=== PATIENT | female | born 1985 | race Caucasian/White ===

== ENCOUNTER 2018-02-02 23:27 | Emergency (ER) | payer SELFPAY ==
[2018-02-02 23:30] VITALS: BP 116/77; PULSE 91; RESP 18; TEMP 36.5; O2SAT 100; BMI 32.7
--- NOTE | 2018-02-02 23:39 | RAD_ITS ---
STUDY: X-RAY - LEFT KNEE REASON FOR EXAM: Female, 32 years old. Left knee pain medially, posterior to the left patella, no recent injury. TECHNIQUE: 4 view(s) of the knee. COMPARISON: 03/07/2013 FINDINGS: Normal visualized distal femur. Tiny spurring along the femoral notch laterally is new. Normal visualized proximal tibia and fibula. Normal proximal tibiofibular articulation. Normal medial femorotibial compartment. Normal lateral femorotibial compartment. Normal patellofemoral articulation. There is no demonstrated joint effusion. The soft tissue structures are unremarkable. RAD/Knee 4 or More Views IMPRESSION: Tiny spur involving the femoral notch new since previous examination. Otherwise no significant degenerative changes detected. Electronically Signed: Fiona Barragan MD at 0:28 EDT , Service support ,
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
[2018-02-02] MEDS: HYDROcodone Bitartrate/Apap 5/325 Tablet PO (23:57)
--- NOTE | 2018-02-03 00:32 | ED.DEP ---
ED Disposition - Plan for ED Patient: Chief Complaint: Lower Extremity Injury Instructions: ED Sprain Knee Prescriptions: Naproxen [Naprosyn] 500 mg PO BID PRN #20 tablet Referrals: Elijah Umana MD [Primary Care Provider] -
[2018-02-03 00:39] VITALS: BP 107/80; PULSE 79; RESP 18; O2SAT 99
== END 2018-02-03 00:56 | disposition home or self-care (01) ==
PROVIDERS: Emergency Provider Emergency Medicine; Family Provider Family Medicine; PCP Family Medicine
DX: M25.562 Pain in left knee (principal); Z72.0 Tobacco use; Z79.899 Other long term (current) drug therapy
CPT/HCPCS: 73564; 99283

== ENCOUNTER 2018-03-06 19:25 | Emergency (ER) | payer MEDICAID, SELFPAY ==
[2018-03-06 19:26] VITALS: BP 107/77; PULSE 80; RESP 16; TEMP 36.7; O2SAT 97; BMI 33.1
--- NOTE | 2018-03-06 20:01 | CT_ITS ---
STUDY: CT ABDOMEN AND PELVIS WITH CONTRAST REASON FOR EXAM: Female, 32 years old. Abdominal pain. RADIATION DOSAGE (If Supplied By Facility): CTDIvol = ( 16.10 ) mGy, DLP = ( 1116.80 ) mGycm TECHNIQUE: Transaxial images were obtained from the dome of the diaphragm to the symphysis pubis without oral contrast. 100ML ml of Isovue 300 contrast was administered. Sagittal and coronal images were reconstructed. Individualized dose optimization techniques were used for this CT. COMPARISON: None. FINDINGS: Posterior dependent atelectatic changes are present. The visualized portions of the heart are within normal limits. Normal liver. Normal gallbladder and extrahepatic biliary system. Normal spleen. Normal pancreas. Normal bilateral adrenal glands. Normal right kidney. Normal left kidney. Normal visualized stomach. There is mild dilatation of the small bowel within the left quadrant suggestive of ileus in the appropriate clinical setting. Normal colon. The appendix is visualized and appears normal. Normal abdominal aorta. Normal inferior vena cava. Normal retroperitoneum. Normal urinary bladder. Normal visualized uterus. Bilateral Essure devices are in place. Hypoechoic region within the left adnexa is present consistent with ovarian cyst measuring 1.6 cm. Normal abdominal wall. Normal osseous structures. CT/Abdomen/Pelvis WITH Contrast IMPRESSION: Left quadrant mild small bowel dilatation suggestive of ileus in the appropriate clinical setting with underlying enteritis not excluded. No evidence of definitive small bowel obstruction. Left ovarian cyst as above. Electronically Signed: Kevan Wade DO at 22:48 EST , Service support ,
[2018-03-06 20:14] LABS: Red Blood Cells-Urine 0 SEEN /hpf (0-5)
[2018-03-06 20:18] LABS: Color, Urine Yellow (Yellow); Glucose, Dipstick 100 mg/dl (Normal); Ketone-Dipstick 5 mg/dl (Negative); Leukocyte Esterase-Dipstick 500 /ul (Negative); Nitrite-Dipstick Negative (Negative); Occult Blood-Urine 10 /ul (Negative); Protein-Dipstick 15 mg/dl (Negative); Specific Gravity, Urine 1.025 (1.002-1.030); Urine Bilirubin Dipstick Negative (Negative); Urine Clarity Sl. Cloudy (Clear); Urine Urobilinogen Normal (Normal)
--- NOTE | 2018-03-06 20:21 | ED.DCSUM_ITS ---
- ER Visit Summary Date of Service: 03/06/18 Chief Complaint: Abdominal pain History of Present Illness: The patient is a 32 F presenting with abdominal pain. She states it started 2-3 days ago. Pain is diffuse cramping. She has nausea; no vomiting or diarrhea. She denies urinary complaints. Denies pos sibility of . Denies fever. Denies other complaints. Physical Examination: Vitals are stable. Patient is afebrile. Alert no acute distress. HEENT exam is unremarkable. Neck is supple. Lungs are clear and equal bilaterally. Heart is regular rate and rhythm. Abdomen is soft right lower quadrant and diffuse tenderness with no rebound or guarding Extremities are unremarkable. Skin is warm and dry. Remainder of exam is unremarkable. Emergency Department Course and Treatment: Patient is given IV fluids, Zofran, morphine. CBC shows white count 12.4. Chemistries unremarkable. Liver lipase are normal. Urinalysis shows 5-10 white blood cells, contaminated with 10-[address] HCG negative. CT abdomen pelvis shows left quadrant mild small bowel dilatation suggestive of ileus in the appropriate clinical setting with underlying enteritis not excluded. No evidence of definitive small bowel obstruction. Left ovarian cyst. Patient is advised of these findings. On reevaluation, she is resting comfortably and feeling improved. She is given a prescription for Zofran and Bentyl. She is advised to follow-up with her primary care physician. Advised return to ED if worsening complaints. Disposition: Discharge home Impression: Abdominal pain This note was generated with [employer] dictation software. It may contain incorrect words, spelling, and punctuation that were not noted in review of the chart prior to signing ED Disposition - Plan for ED Patient: Chief Complaint: Abd Pain Instructions: ED Abdominal Pain Unkn Cause Prescriptions: Ondansetron [Zofran Odt] 4 mg PO Q8H PRN PRN #10 tablet PRN Reason: Nausea Dicyclomine HCl [Bentyl] 20 mg PO TIDAC #20 capsule Referrals: Elijah Umana MD [Primary Care Provider] -
[2018-03-06] MEDS: Morphine 4 MG/ML Syringe IV (20:24)
[2018-03-06] MEDS: Ondansetron 4 MG/2 ML Vial IV (20:24)
[2018-03-06] MEDS: 0.9% Normal Saline 1,000 ML 1000 ML IV (20:24)
[2018-03-06 20:25] LABS: Squamous Epithelial Cells - UA 10-25 SEEN /hpf (5-10); White Blood Cells 5-10 SEEN /hpf (0-5)
[2018-03-06 20:27] LABS: Bacteria RARE /hpf (None Seen); Mucous, Urine 2+ /hpf (<or=2+)
[2018-03-06 20:27] LABS: Absolute Lymphocyte Count 2.71 X10^3/ul (0.83-4.51); Absolute Neutrophil Count 8.5 X10^3/uL (2.0-7.7); Basophil# 0.02 X10^3/uL; Basophil% 0.2 % (0-1); Eosinophil# 0.15 X10^3/uL; Eosinophils% 1.2 % (0-5); Hematocrit 41.9 % (37-47); Hemoglobin 13.4 g/dl (12.0-15.0); Lymphocyte # 2.71 X10^3/ul (4.0); Lymphocyte % 21.9 % (19-41); Mean Corpuscular Hgb 30.7 pg (27.0-32.0); Mean Corpuscular Volume 95.9 fL (81-99); Mean Platelet Vol. 10.3 fl (6.2-12.0); Monocyte# 0.96 X10^3/uL; Monocyte% 7.7 % (0-10); Neutrophil # 8.54 X10^3/uL (2.7-7.7); Neutrophil % 68.8 % (47-70); Platelet Count 323 K/mm3 (150-450); RBC Distribution Width CV 13.2 % (11.6-14.6); Red Blood Count 4.37 M/mm3 (4.2-5.4); White Blood Count 12.4 K/mm3 (4.4-11.0)
[2018-03-06 20:28] LABS: POSITIVE COUNT NO; POSITIVE DIFFERENTIAL NO; POSITIVE MORPHOLOGY NO
[2018-03-06 20:45] LABS: AST(SGOT) 14 U/L (15-37); Alanine Aminotransfer ALT/SGPT 31 U/L (13-56); Albumin, Serum 3.2 g/dL (3.2-5.0); Alkaline Phosphatase 79 U/L (45-117); Anion Gap 8 (5-15); BUN 7 mg/dL (7-18); BUN/Creat Ratio 7.8 RATIO (10-20); Bilirubin, Direct < 0.05 mg/dL (0.00-0.30); Calcium,Total 8.3 mg/dL (8.5-10.1); Chloride 108 mmol/L (98-107); EST Glomerular Filtration Rate 78 mL/min (>60); Est Glom Filt Rate - Afr Amer 95 mL/min (>60); Estimated Creatinine Clearance 72.29 ml/min; Globulin 3.1 g/dL (2.2-4.2); Glucose 90 mg/dL (74-106); Lipase 160 U/L (73-393); Potassium 4.2 mmol/L (3.5-5.1); Protein, Total 6.3 g/dL (6.4-8.2); Sodium Level 143 mmol/L (136-145)
[2018-03-06 21:25] LABS: Pregnancy, Serum, hCG Quali. NEGATIVE Negative (0-9 Nonpreg)
[2018-03-06 21:32] VITALS: BP 113/87; PULSE 76; RESP 16; O2SAT 99
--- NOTE | 2018-03-06 23:39 | ED.DEP ---
ED Disposition - Plan for ED Patient: Chief Complaint: Abd Pain Instructions: ED Abdominal Pain Unkn Cause Prescriptions: Ondansetron [Zofran Odt] 4 mg PO Q8H PRN PRN #10 tablet PRN Reason: Nausea Dicyclomine HCl [Bentyl] 20 mg PO TIDAC #20 capsule Referrals: Elijah Umana MD [Primary Care Provider] -
== END 2018-03-06 23:54 | disposition home or self-care (01) ==
PROVIDERS: Emergency Provider Emergency Medicine; Family Provider Family Medicine; PCP Family Medicine
DX: R10.31 Right lower quadrant pain (principal); R10.84 Generalized abdominal pain; F31.9 Bipolar disorder, unspecified; Z72.0 Tobacco use; Z79.899 Other long term (current) drug therapy
CPT/HCPCS: 74177; 80048; 80076; 81001; 83690; 84703; 85025; 96361; 96374; 96375; 99283; J7030; Q9967; A4216; J2405